=== PATIENT | female | born 1990 | race African-American/Black ===

== ENCOUNTER 2017-03-09 21:14 | Emergency (ER) | payer MEDICAID ==
[2017-03-09 21:36] VITALS: BP 133/79
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
--- NOTE | 2017-03-10 10:24 | CR ---
Right forearm: Two views of the right forearm were obtained. Comparison: No previous study. Soft tissue swelling is noted. No fracture, dislocation or other bony abnormality is seen. Impression: 1. Soft tissue swelling. 2. No bony abnormality is identified on right forearm study. Diagnostic code #2
--- NOTE | 2017-03-10 10:24 | CR ---
Right wrist: Four views of the right wrist were obtained. Comparison: No previous study. Joint spaces are maintained. No fracture, dislocation or other bony abnormality is seen. Impression: 1. No abnormality is identified on right wrist exam. Diagnostic code #1
== END 2017-03-10 02:00 | disposition home or self-care (01) ==
LOC: JD.ED 21:14
DX: S50.11XA Contusion of right forearm, initial encounter (principal); S69.91XA Unspecified injury of right wrist, hand and finger(s), initial encounter; F17.210 Nicotine dependence, cigarettes, uncomplicated; Y04.0XXA Assault by unarmed brawl or fight, initial encounter; M25.531 Pain in right wrist; M79.631 Pain in right forearm
CPT/HCPCS: 29125; 73090-26-RT; 73090-RT; 73110-26-RT; 73110-RT; 99282; 99284-25

== ENCOUNTER 2017-06-20 11:06 | Emergency (ER) | payer MEDICAID ==
[2017-06-20 11:17] VITALS: BP 116/71
--- NOTE | 2017-06-20 11:59 | EDM.PDOC ---
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 Symptom started about 1 week ago and have progressively gotten worse. She says it feels like a yeast infection but would like to be checked for STIs. She has been with the same partner for 1.5 years. She says her partner is also experiencing symptoms. No fever or chills. She is not on any forms of control and is a possibility. She denies burning or pain with urination. No flank pain. She is due to start her period next week. 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 Denies: Fever, Chills Respiratory: Reports: No Symptoms Cardiovascular: Reports: No Symptoms GI/Abdominal: Denies: Abdominal Pain, Nausea, Vomiting : Reports: Discharge, Frequency. Denies: Dysuria, Flank Pain, Hematuria, Urgency ED EXAM, RENAL/ - Physical Exam Exam: See Below Exam Limited By: No Limitations General Appearance: Alert, WD/WN, No Apparent Distress Respiratory/Chest: No Respiratory Distress, Lungs Clear, Normal Breath Sounds Cardiovascular: Regular Rate, Rhythm GI/Abdominal: Normal Bowel Sounds, Soft, Non-Tender (Female) Exam: Normal External Exam, Normal Bimanual Exam, Vaginal Discharge (white, thin dischage ). No: Cervical Dilatation, Cervical Lesions, Cervix Motion Tenderness, Vaginal Bleeding, Vaginal Lesions, Vaginal Tears Back Exam: Normal Inspection, Full Range of Motion. No: CVA Tenderness (L), CVA Tenderness (R) Neurological: Alert, Oriented, Normal Cognition Course - Vital Signs Last Recorded V/S: Last Vital Signs Temp 97.6 F 06/20/17 11:14 Pulse 93 06/20/17 11:14 Resp 18 06/20/17 11:14 BP 116/71 06/20/17 11:14 Pulse Ox 97 06/20/17 11:14 - Orders/Labs/Meds Orders: Active Orders 24 hr Category Date Time Status Pelvic Exam, Set Up [RC] ASDIRECTED Care 06/20/17 11:45 Active Labs: Laboratory Tests 06/20/17 06/20/17 06/20/17 Range/Units 11:35 11:35 11:40 Urine Color Yellow (Yellow) Urine Appearance Clear (Clear) Urine pH 6.0 (5.0-8.0) Ur Specific [place] > or = 1.030 (1.005-1.030) Urine Protein Negative (Negative) Urine Glucose (UA) Negative (Negative) Urine Ketones Negative (Negative) Urine Occult Blood Negative (Negative) Urine Nitrite Negative (Negative) Urine Bilirubin Negative (Negative) Urine Urobilinogen 0.2 (0.2-1.0) Ur Leukocyte Esterase Trace H (Negative) Urine RBC 0-5 (0-5) /hpf Urine WBC 5-10 H (0-5) /hpf Ur Epithelial Cells 0-5 (0-5) /hpf Urine Bacteria Few (FEW) /hpf Urine Mucus Few (FEW) /hpf Urine HCG, Qual Negative (NEGATIVE) C trachomatis DNA (PCR) Detected H N gonorrhoeae DNA (PCR) Not detected - Re-Assessments/Exams Free Text/Narrative Re-Assessment/Exam: 06/20/17 13:16 Hcg is negative. Wet mount is positive for trichomoniasis. UA reveals 5-10 WBCs and positive leukocytes. Discussed with Dr Peterson. Will treat with Cipro 500mg BID x5 days and Flagyl 500mg BID x3 days. Will call patient if her GC/cylamydia testing comes back positive. 06/20/17 15:21 Chlamydia came back positive. Patient was notified of results. Rx for Azithromycin 1 gram PO x1 [facility] [address]. Departure - Departure Time of Disposition: 13:13 Disposition: Home, Self-Care 01 Condition: Good Clinical Impression: Vaginitis due to Trichomonas - Discharge Information Prescriptions: Ciprofloxacin [IJD: Ciprofloxacin HCl] 500 mg PO BID #10 tab metroNIDAZOLE [Flagyl] 500 mg PO BID #6 tablet Instructions: Vaginitis, [id number]-Cced Referrals: Lawanda Beth, MANAGER WINTER [Nurse Practitioner] - Forms: ED Department Discharge Additional Instructions: Your test was negative today. Your tests back with an infection called trichomoniasis. Treatment includes Flagyl 500mg twice a day for 5 days Your urine sample also showed a mild infection. This will be treated with Ciprofloxacin 500mg twice a day for 5 days. Follow-up in the clinic with Lawanda BURNHAM if your symptoms do not improve in 3-4 days. We will call you if your additional testing comes back positive. - My Orders Last 24 Hours: My Active Orders 06/20/17 11:45 Pelvic Exam, Set Up [RC] ASDIRECTED - Assessment/Plan Last 24 Hours: My Active Orders 06/20/17 11:45 Pelvic Exam, Set Up [RC] ASDIRECTED
[2017-06-20 13:54] LABS: C. TRACHOMATIS BY PCR DETECTED; N. GONORRHOEAE BY PCR NOT DETECTED
== END 2017-06-20 13:25 | disposition home or self-care (01) ==
LOC: JD.ED 11:06
DX: A59.01 Trichomonal vulvovaginitis (principal)
CPT/HCPCS: 81001; 81025; 87210; 87491; 87591; 87808; 99283

== ENCOUNTER 2017-08-10 09:50 | Emergency (ER) | payer MEDICAID ==
[2017-08-10 10:05] VITALS: BP 156/110
[2017-08-10] MEDS ORDERED: Lidocaine 1% 50 ML MDV INJECT ONE (10:58)
[2017-08-10] MEDS ORDERED: Acetaminophen Soln 650 MG/20.3 ML UD Cup PO ONE (10:58)
[2017-08-10] MEDS ORDERED: Ondansetron 4 MG Tab.DIS PO ONE (11:04)
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
[2017-08-10] MEDS ORDERED: Ondansetron 4 MG Tab.DIS ONE (11:07)
--- NOTE | 2017-08-10 15:44 | CR ---
Left fingers: Three radiographs of the left second through fourth digits were obtained. Soft tissue injury is seen within the second through fourth digits. No fracture or other bony abnormality is seen. Impression: 1. Soft tissue injury. No acute bony abnormality is identified. Diagnostic code #2
== END 2017-08-10 13:59 | disposition home or self-care (01) ==
LOC: SUPCPDRO 09:50 → JD.ED 09:50
DX: S61.211A Laceration without foreign body of left index finger without damage to nail, initial encounter (principal); S61.213A Laceration without foreign body of left middle finger without damage to nail, initial encounter; S61.215A Laceration without foreign body of left ring finger without damage to nail, initial encounter; Y04.8XXA Assault by other bodily force, initial encounter
CPT/HCPCS: 12004; 73140; 99284; A9270

== ENCOUNTER 2017-08-23 16:53 | Emergency (ER) | payer MEDICAID | END 2017-08-23 17:08 | LOC: JD.ED 16:53 | DX: O9A.211 Injury, poisoning and certain other consequences of external causes complicating pregnancy, first trimester (principal); S61.213D Laceration without foreign body of left middle finger without damage to nail, subsequent encounter; S61.211D Laceration without foreign body of left index finger without damage to nail, subsequent encounter; S61.215D Laceration without foreign body of left ring finger without damage to nail, subsequent encounter; X78.1XXA Intentional self-harm by knife, initial encounter ==

== ENCOUNTER 2017-09-16 11:48 | Emergency (ER) | payer MEDICAID ==
[2017-09-16 11:59] VITALS: BP 126/86
[2017-09-16] MEDS ORDERED: Ranitidine 15 MG/ML Syrup 10 ML UD Cup PO ONE (12:23)
--- NOTE | 2017-09-16 12:32 | EDM.PDOC ---
ED HPI GENERAL MEDICAL PROBLEM - General Chief Complaint: Abdominal Pain Stated Complaint: Abdominal pain Time Seen by Provider: 09/16/17 12:10 Source of Information: Reports: Patient, RN Notes Reviewed History Limitations: Reports: No Limitations - History of Present Illness INITIAL COMMENTS - FREE TEXT/NARRATIVE: 27 year old female presents to the ED with complaints of 1 hour history of epigastric pain. The pain is described as intermittent. The pain does not radiate. The pain improves with palpation. Prior to onset of symptoms, she ate some ground turkey and rice. She did vomit once after onset of pain. She also had a large, soft bowel movement after onset of symptoms. She's had no diarrhea, fever or chills. No history of abdominal pain with certain foods. She has been eating a lot of spicy food lately. She is approximately 12 weeks and has been experiencing morning sickness, nausea and vomiting throughout her first trimester. She has not taken any medications prior to arrival. She denies urinary tract symtoms. She denies vaginal bleeding or discharge. OBGYN history: 5, para 2, history of 2 abortions. Her OBGYN is Dr. Engle. Upper Abdominal Pain Score (Numeric/FACES): 8 - Related Data Allergies Allergy/AdvReac Type Severity Reaction Status Date / Time No Known Allergies Allergy Verified 09/16/17 11:56 Home Meds: Home Meds Vitamin. 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 Social & Family History - Family History Family Medical History: Noncontributory - Tobacco Use Smoking Status *Q: Unknown Ever Smoked Years of Tobacco use: 3 Packs/Tins Daily: 0.1 Second Hand Smoke Exposure: No - Caffeine Use Caffeine Use: Reports: Soda - Alcohol Use Days Per Week of Alcohol Use: 3 Number of Drinks Per Day: 2 Total Drinks Per Week: 6 - Recreational Drug Use Recreational Drug Use: Yes Recreational Drug Type: Reports: Cocaine Recreational Drug Use Frequency: Not Used In Over 6 Months ED ROS GENERAL - Review of Systems Review Of Systems: See Below Constitutional: Reports: No Symptoms. Denies: Fever, Chills, Night Sweats Respiratory: Reports: No Symptoms. Denies: Shortness of Breath Cardiovascular: Reports: No Symptoms. Denies: Chest Pain GI/Abdominal: Reports: Abdominal Pain, Nausea, Vomiting. Denies: Constipation, Diarrhea, Hematemesis : Reports: No Symptoms. Denies: Dysuria, Flank Pain ED EXAM, GI/ABD - Physical Exam Exam: See Below Exam Limited By: No Limitations General Appearance: Alert, WD/WN, No Apparent Distress Respiratory/Chest: No Respiratory Distress, Lungs Clear, Normal Breath Sounds Cardiovascular: Regular Rate, Rhythm GI/Abdominal Exam: Normal Bowel Sounds, Soft, Non-Tender, No Organomegaly, No Distention, Other (Negative ignacio's sign. No pain with palpation to the abdomen. According to patient, the pain is isolated to the epigastric region. ) . No: Guarding, Rigid, Rebound, Tender Course - Vital Signs Last Recorded V/S: Last Vital Signs Temp 97.2 F 09/16/17 11:56 Pulse 98 09/16/17 11:56 Resp BP 126/86 09/16/17 11:56 Pulse Ox 99 09/16/17 11:56 - Orders/Labs/Meds Meds: Medications Discontinued Medications Generic Name Dose Route Start Last Admin Trade Name Freq PRN Reason Stop Dose Admin Ranitidine HCl 150 mg 09/16/17 12:23 Zantac PO 09/16/17 12:24 ONETIME ONE - Re-Assessments/Exams Free Text/Narrative Re-Assessment/Exam: Abdominal exam is benign. It's likely the patient has gastritis related to morning sickness, nausea and vomiting in early . She was instructed to take zantac and tums PRN. Educated on dietary modifications. She is to f/u with her OBGYN as scheduled, sooner if needed. Departure - Departure Time of Disposition: 12:30 Disposition: Home, Self-Care 01 Condition: Good Clinical Impression: Gastroesophageal reflux in Gastritis Qualifiers: Gastritis type: unspecified gastritis Chronicity: acute Gastritis bleeding: without bleeding Qualified Code(s): K29.00 - Acute gastritis without bleeding - Discharge Information Referrals: Frederick Engle MD [Primary Care Provider] - Forms: ED Department Discharge Additional Instructions: Zantac 150mg tablet twice a day as needed for pain You can also take 1-2 Tums every 4-6 hours as needed [place] diet: avoid spicy foods, tomato based foods, caffeine, acidic fruits Stay well hydrated, at least 80 oz of water per day. Follow-up with your OBGYN as scheduled Return to ER or clinic if symptoms worsen or do not improve with above treatment.
== END 2017-09-16 12:55 | disposition home or self-care (01) ==
LOC: JD.ED 11:48
DX: O99.611 Diseases of the digestive system complicating pregnancy, first trimester (principal); K29.00 Acute gastritis without bleeding; Z3A.12 12 weeks gestation of pregnancy
CPT/HCPCS: 99284; A9270; 99283

== ENCOUNTER 2017-11-09 19:04 | Emergency (ER) | payer MEDICAID ==
[2017-11-09 19:16] VITALS: BP 113/74
--- NOTE | 2017-11-09 20:22 | EDM.PDOC ---
ED HPI GENERAL MEDICAL PROBLEM - General Chief Complaint: HAIR COLORIST Problem Stated Complaint: spotting Time Seen by Provider: 11/09/17 19:09 Source of Information: Reports: Patient History Limitations: Reports: No Limitations - History of Present Illness INITIAL COMMENTS - FREE TEXT/NARRATIVE: The patient states that she had some painless vaginal spotting around 19:00 this evening. She reports that she has had lower abdominal and lower back pain since yesterday, 11/08/2017. No vaginal discharge, itching, or discomfort. The patient is G5 L2 AB2. Her LMP was 06/25/2017, with LEE 06/02/2018 by dates as well as by U/S - she has had 2 with this - her last was around 2 months ago, demonstrating a SLIUP. She is 19W 4D today. The patient states that her blood type is O-Neg. She states that she received RhoGAM during 2 previous pregnancies. Her Production Planning Manager is Dr. Frederick Engle. The patient does not have a PCP. - Related Data Allergies Allergy/AdvReac Type Severity Reaction Status Date / Time No Known Allergies Allergy Verified 11/09/17 19:17 Home Meds: Home Meds Vitamin. 1 tab PO DAILY 09/16/17 [History] Past Medical History HAIR COLORIST History: Reports: , Therapeutic (x 2) Endocrine/Metabolic History: Reports: Obesity/BMI 30+ - Past Surgical History HEENT Surgical History: Reports: Oral Surgery ([place] teeth extraction) Social & Family History - Family History Family Medical History: Noncontributory - Tobacco Use Smoking Status *Q: Former Smoker Years of Tobacco use: 3 Packs/Tins Daily: 0.1 Second Hand Smoke Exposure: Yes - Caffeine Use Caffeine Use: Reports: None - Alcohol Use Alcohol Use History: Yes Days Per Week of Alcohol Use: 3 Number of Drinks Per Day: 2 Total Drinks Per Week: 6 Alcohol Use Frequency: Socially - Recreational Drug Use Recreational Drug Use: No Recreational Drug Type: Reports: Cocaine Recreational Drug Use Frequency: Not Used In Over 6 Months - Living Situation & Occupation Living situation: Reports: Single, with Significant Other (Boyfriend), with Family (2 kids) 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) ED ROS GENERAL - Review of Systems Review Of Systems: See Below Constitutional: Reports: No Symptoms HEENT: Reports: No Symptoms Respiratory: Reports: Cough (last week) Cardiovascular: Reports: No Symptoms Endocrine: Reports: No Symptoms GI/Abdominal: Reports: No Symptoms : Reports: No Symptoms Musculoskeletal: Reports: No Symptoms Skin: Reports: No Symptoms Neurological: Reports: No Symptoms Psychiatric: Reports: No Symptoms Hematologic/Lymphatic: Reports: No Symptoms Immunologic: Reports: No Symptoms ED EXAM - Physical Exam Exam: See Below Exam Limited By: No Limitations General Appearance: Alert, WD/WN, No Apparent Distress Eye Exam: Bilateral Eye: Normal Inspection Ears: Normal External Exam, Hearing Grossly Normal Nose: Normal Inspection, No Blood Throat/Mouth: Normal Inspection, Normal Lips, Normal Voice, No Airway Compromise Head: Atraumatic, Normocephalic Neck: Normal Inspection, Full Range of Motion Respiratory/Chest: No Respiratory Distress, Lungs Clear, Normal Breath Sounds, No Accessory Muscle Use Cardiovascular: Normal Peripheral Pulses, Regular Rate, Rhythm, No Gallop, No JVD, No Murmur, No Rub GI/Abdominal Exam: Normal Bowel Sounds, Soft, Non-Tender (even to lower abdomen) , No Organomegaly, No Distention, No Abnormal Bruit, Other (Gravid uterus consistent with dates) Rectal Exam: Deferred (Female) Exam: Normal Speculum Exam. No: Cervical Dilatation, Cervical Discharge, Cervical Fluid, Cervical Lesions, Vaginal Bleeding, Vaginal Discharge , Vaginal Lesions Back Exam: Normal Inspection, Full Range of Motion, NT Extremities: Normal Inspection, Normal Range of Motion, No Pedal Edema, Normal Capillary Refill Neurological: Alert, Oriented, Normal Cognition, No Motor/Sensory Deficits Psychiatric: Normal Affect Skin Exam: Warm, Dry, Intact, Normal Color, No Rash Course - Vital Signs Last Recorded V/S: Last Vital Signs Temp 36.9 C 11/09/17 19:14 Pulse 89 11/09/17 19:14 Resp 18 11/09/17 19:14 BP 113/74 11/09/17 19:14 Pulse Ox 100 11/09/17 19:14 - Orders/Labs/Meds Orders: Active Orders 24 hr Category Date Time Status PATIENT RETYPE [BBK] Stat Lab 11/09/17 20:04 Results RH IMMUNE GLOBULIN [BBK] Routine Lab 11/09/17 21:02 Results RHOGAM, [RHIG WORKUP, ] [BBK] Stat Lab 11/09/17 20:04 Results Labs: Laboratory Tests 11/09/17 Range/Units 20:04 Blood Type O NEGATIVE Gel Antibody Screen Negative Rhogam Indicated Yes - Re-Assessments/Exams Free Text/Narrative Re-Assessment/Exam: 11/09/17 20:[address] Azevedo at 20:12. She recommends that we proceed with giving the patient Rhogam, then have the patient follow-up with Dr. Engle as an outpatient. 11/09/17 21:33 The patient's blood type has returned as O-Neg. She will receive 300 g RhoGAM before being discharged home. Departure - Departure Time of Disposition: 21:35 Disposition: Home, Self-Care 01 Condition: Good Clinical Impression: Spotting during - Discharge Information Referrals: Frederick Engle MD [Primary Care Provider] - Forms: ED Department Discharge Additional Instructions: You were seen in the emergency room for painless vaginal spotting during . On physical examination, no vaginal blood was found. Your case was discussed with the Production Planning Manager Dr. Azevedo, on-call for Dr. Engle. She recommended that you receive a RhoGAM shot tonight. Follow-up with Dr. Engle at the next available appointment. If any other problems, please do not hesitate to return to the ER. - My Orders Last 24 Hours: My Active Orders 11/09/17 20:04 PATIENT RETYPE [BBK] Stat RHOGAM, [RHIG WORKUP, ] [BBK] Stat 11/09/17 21:02 RH IMMUNE GLOBULIN [BBK] Routine - Assessment/Plan Last 24 Hours: My Active Orders 11/09/17 20:04 PATIENT RETYPE [BBK] Stat RHOGAM, [RHIG WORKUP, ] [BBK] Stat 11/09/17 21:02 RH IMMUNE GLOBULIN [BBK] Routine
== END 2017-11-09 21:55 | disposition home or self-care (01) ==
LOC: JD.ED 19:04
DX: O26.852 Spotting complicating pregnancy, second trimester (principal); Z87.891 Personal history of nicotine dependence; Z3A.14 14 weeks gestation of pregnancy
CPT/HCPCS: 36415; 86850; 86900; 86901; 99284; J2790; 99283

== ENCOUNTER 2017-12-07 11:49 | Emergency (ER) | payer MEDICAID ==
[2017-12-07 12:13] VITALS: BP 119/91
--- NOTE | 2017-12-07 12:18 | EDM.PDOC ---
ED HPI GENERAL MEDICAL PROBLEM - General Chief Complaint: Respiratory Problem Stated Complaint: FEVER/SORE THROAT- 6 MO PREG Time Seen by Provider: 12/07/17 12:18 Source of Information: Reports: Patient - History of Present Illness INITIAL COMMENTS - FREE TEXT/NARRATIVE: Patient is here today for evaluation of cough and sore throat. She states that symptoms started 2 days ago. She did not receive the influenza vaccine. Patient has had fever, states she is feeling slightly better today. Patient states she has decreased appetite but is tolerating oral fluids. She did a [employer] just prior to arrival in the emergency department. Patient is 6 months , her OB is Dr. Engle at [facility]. 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 Endocrine/Metabolic History: Reports: Obesity/BMI 30+ - Past Surgical History HEENT Surgical History: Reports: Oral Surgery Social & Family History - Family History Family Medical History: Noncontributory - Tobacco Use Smoking Status *Q: Former Smoker Years of Tobacco use: 3 Packs/Tins Daily: 0.1 Second Hand Smoke Exposure: Yes - Caffeine Use Caffeine Use: Reports: None - Alcohol Use Days Per Week of Alcohol Use: 3 Number of Drinks Per Day: 2 Total Drinks Per Week: 6 - Recreational Drug Use Recreational Drug Use: No Recreational Drug Type: Reports: Cocaine Recreational Drug Use Frequency: Not Used In Over 6 Months - Living Situation & Occupation Living situation: Reports: Single, with Significant Other (Boyfriend), with Family (2 kids) 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 Denies: Shortness of Breath, Wheezing Cardiovascular: Reports: No Symptoms Endocrine: Reports: No Symptoms GI/Abdominal: Reports: No Symptoms Musculoskeletal: Reports: No Symptoms Skin: Reports: No Symptoms ED EXAM, GENERAL - Physical Exam Exam: See Below Exam Limited By: No Limitations General Appearance: Alert, WD/WN, No Apparent Distress, Other (Patient is not ill in appearance.) Ears: Normal External Exam, Normal Canal, Normal TMs Nose: Normal Inspection, Normal Mucosa Throat/Mouth: Normal Inspection, Normal Oropharynx, Normal Voice Neck: Normal Inspection, Supple, Non-Tender Respiratory/Chest: No Respiratory Distress, Lungs Clear, Normal Breath Sounds, Chest Non-Tender Cardiovascular: Normal Peripheral Pulses, Regular Rate, Rhythm, No Murmur GI/Abdominal: Normal Bowel Sounds, Non-Tender, Other (Gravid) Neurological: Alert, Oriented Psychiatric: Normal Affect, Normal Mood Skin Exam: Warm, Dry, Intact Course - Vital Signs Last Recorded V/S: Last Vital Signs Temp 98.2 F 12/07/17 12:11 Pulse 97 12/07/17 12:11 Resp 20 12/07/17 12:11 BP 119/91 H 12/07/17 12:11 Pulse Ox 99 12/07/17 12:11 - Orders/Labs/Meds Orders: Active Orders 24 hr Category Date Time Status CULTURE STREP A CONFIRMATION [RM] Stat Lab 12/07/17 12:49 Results Rapid Strep w/culture conf [STREP SCRN A RAPID W CULT Lab 12/07/17 12:49 Results CONF] [RM] Stat - Re-Assessments/Exams Free Text/Narrative Re-Assessment/Exam: Influenza A positive, patient is out of the treatment window for Tamiflu and her symptoms are already improving. She did not receive her flu vaccine this year. Patient has decreased appetite but drinking plenty of fluids well, she is drinking water here in the clinic without difficulty. Lungs CTA bilaterally and oxygen 99% on room air. Will discharge home, recommend rest/fluids/Tylenol as needed. Patient does have a follow-up with her OB tomorrow. I recommend she keep this wear mask when she comes into the clinic. 12/07/17 17:14 Departure - Departure Time of Disposition: 13:47 Disposition: Home, Self-Care 01 Condition: Good Clinical Impression: Influenza A - Discharge Information Instructions: Influenza, Adult, [id number] Referrals: Frederick Engle MD [Primary Care Provider] - Forms: ED Department Discharge Additional Instructions: You have been diagnosed with influenza A. It is past the time window to use antiviral medications for this. I recommend that you rest, maximize oral fluid intake. Tylenol as needed. Follow-up with your OB tomorrow as scheduled. You will need to wear a mask when you come into the building. - My Orders Last 24 Hours: My Active Orders 12/07/17 12:49 CULTURE STREP A CONFIRMATION [RM] Stat Rapid Strep w/culture conf [STREP SCRN A RAPID W CULT CONF] [RM] Stat - Assessment/Plan Last 24 Hours: My Active Orders 12/07/17 12:49 CULTURE STREP A CONFIRMATION [RM] Stat Rapid Strep w/culture conf [STREP SCRN A RAPID W CULT CONF] [RM] Stat
== END 2017-12-07 14:06 | disposition home or self-care (01) ==
LOC: JD.ED 11:49
DX: O99.511 Diseases of the respiratory system complicating pregnancy, first trimester (principal); J10.1 Influenza due to other identified influenza virus with other respiratory manifestations; Z87.891 Personal history of nicotine dependence; Z3A.01 Less than 8 weeks gestation of pregnancy
CPT/HCPCS: 87081; 87430; 87804; 99282; 99283

== ENCOUNTER 2018-03-11 11:24 | Inpatient (IN) | payer MEDICAID ==
--- NOTE | 2018-03-11 13:37 | PCM.LDHP ---
L&D History of Present Illness - General Date of Service: 03/11/18 Admit Problem/Dx: Patient Status Order with Admit Dx/Problem 03/11/18 11:55 Patient Status [ADT] Routine Admission Diagnosis/Problem Admission Diagnosis/Problem Source of Information: Patient History Limitations: Reports: No Limitations - History of Present Illness Introduction:: 27 year old female who presents "not feeling well". She is having back pain, irregular contractions, headache and nausea. Has some mild upper respiratory symptoms as well. She has had care with Dr. 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: , 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 Endocrine/Metabolic History: Reports: Obesity/BMI 30+ - Past Surgical History HEENT Surgical History: Reports: Oral Surgery Social & Family History - Family History Family Medical History: Noncontributory - Caffeine Use Caffeine Use: Reports: None - Living Situation & Occupation Living situation: Reports: Single, with Significant Other (Boyfriend), with Family (2 kids) 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) H&P Review of Systems - Review of Systems: Review Of Systems: See Below General: Reports: Fatigue HEENT: Reports: Headaches Pulmonary: Reports: Cough Cardiovascular: Reports: No Symptoms Gastrointestinal: Reports: Nausea, Vomiting Genitourinary: Reports: No Symptoms Musculoskeletal: Reports: No Symptoms Skin: Reports: No Symptoms Psychiatric: Reports: No Symptoms Neurological: Reports: No Symptoms Hematologic/Lymphatic: Reports: No Symptoms Immunologic: Reports: No Symptoms L&D Exam - Exam Exam: See Below - Vital Signs Weight: 124.375 kg - OB Specific Contraction Intensity: Irritability Movement: Active Heart Tones: Present Heart Tones per Min: 145 Heart Rate (FHR) Variability: Moderate (6-25 bmp) Presentation: Vertex - Juarez Score Juarez Score Cervix Position: Midposition Juarez Score Consistency: Medium Juarez Score Effacement: 51-70% Juarez Score Dilation: 1-2 cm Juarez Score 's Station: -3 Juarez Score Total: 5 - Exam General: Alert, Oriented HEENT: PERRLA, Conjunctiva Clear, EACs Clear, EOMI, Hearing Intact, Mucosa Moist & [place], Nares Patent, Normal Nasal Septum, Posterior Pharynx Clear, TMs Clear Neck: Supple, Trachea Midline Lungs: Clear to Auscultation, Normal Respiratory Effort Cardiovascular: Regular Rate, Regular Rhythm GI/Abdominal Exam: Normal Bowel Sounds, Soft, Non-Tender, No Organomegaly, No Distention, No Abnormal Bruit, No Mass, Pelvis Stable Back Exam: Normal Inspection, Full Range of Motion Extremities: Normal Inspection, Normal Range of Motion, Non-Tender, No Pedal Edema, Normal Capillary Refill Skin: Warm, Dry, Intact Neurological: Cranial Nerves Intact, Reflexes Equal Bilateral Psychiatric: Alert, Normal Affect, Normal Mood - Patient Data Lab Results Last 24 hrs: Laboratory Results - last 24 hr 03/11/18 03/11/18 Range/Units 12:06 12:06 WBC 6.60 (3.98-10.04) K/mm3 RBC 4.29 (3.98-5.22) M/mm3 Hgb 10.9 L (11.2-15.7) gm/L Hct 34.4 (34.1-44.9) % MCV 80.2 (79.4-94.8) fl MCH 25.4 L (25.6-32.2) pg MCHC 31.7 L (32.2-35.5) g/dl RDW Std Deviation 43.7 (36.4-46.3) fL Plt Count 239 (182-369) K/mm3 MPV 11.0 (9.4-12.3) fl Neut % (Auto) 75.2 H (34.0-71.1) % Lymph % (Auto) 14.8 L (19.3-51.7) % [place] % (Auto) 8.5 (4.7-12.5) % Eos % (Auto) 0.8 (0.7-5.8) Baso % (Auto) 0.2 (0.1-1.2) % Neut # (Auto) 4.97 (1.56-6.13) K/mm3 Lymph # (Auto) 0.98 L (1.18-3.74) K/mm3 [place] # (Auto) 0.56 H (0.24-0.36) K/mm3 Eos # (Auto) 0.05 (0.04-0.36) K/mm3 Baso # (Auto) 0.01 (0.01-0.08) K/mm3 BUN 4 L (7-18) mg/dL Creatinine 0.5 L (0.55-1.02) mg/dL Est Cr Clr Drug Dosing 168.98 mL/min Estimated GFR (MDRD) > 60 (>60) mL/min Uric Acid 3.6 (2.6-6.0) mg/dL AST 16 (15-37) U/L ALT 19 (14-59) U/L Lactate Dehydrogenase 164 (81-234) U/L Result Diagrams: 03/11/18 12:06 03/11/18 12:06 - Problem List (1) Gestational HTN SNOMED Code(s): 05519726 ICD Code: O13.9 - GESTATIONAL HTN W/O SIGNIFICANT PROTEINURIA, UNSP TRIMESTER Status: Acute Current Visit: Yes Problem List Initiated/Reviewed/Updated: Yes Orders Last 24hrs: Active Orders 24 hr Category Date Time Status Patient Status [ADT] Routine ADT 03/11/18 11:55 Active Non Stress Test [RC] PER UNIT ROUTINE Care 03/11/18 11:55 Active Vaginal Exam [RC] PRN Care 03/11/18 11:56 Active Vital Signs [RC] PER UNIT ROUTINE Care 03/11/18 11:55 Active Regular Diet [DIET] Diet 03/11/18 Lunch Active PIH Panel [OM.PC] Stat Oth 03/11/18 11:55 Ordered Resuscitation Status Routine Resus Stat 03/11/18 11:55 Ordered Assessment/Plan Comment:: IUP at 37 weeks with new onset gestational hypertension. Given she is 37 weeks and her blood pressures throughout have been normal would proceed toward delivery. 1) Labs normal 2) Monitor blood pressures - nothing in range that needs treatment beyond delivery now 3) Proceed with induction. 4) Reassuring status
[2018-03-11] MEDS ORDERED: Sodium Chloride 0.9% 10 ML Syringe FLUSH PRN (13:45)
[2018-03-11] MEDS: Lactated Ringers 1,000 ML IV SCH (16:00)
[2018-03-11 16:36] LABS: C. TRACHOMATIS BY PCR NOT DETECTED; N. GONORRHOEAE BY PCR NOT DETECTED
[2018-03-11] MEDS ORDERED: Misoprostol 25 MCG (1/4 of 100 MCG) Tab VAG SCH (17:00)
[2018-03-11] MEDS: Misoprostol 25 MCG (1/4 of 100 MCG) Tab VAG SCH (18:10)
[2018-03-11] MEDS ORDERED: diphenhydrAMINE 50 MG/ML SDV IVPUSH PRN (21:30)
[2018-03-11] MEDS ORDERED: Ondansetron 4 MG/2 ML SDV IVPUSH PRN (21:30)
[2018-03-11] MEDS ORDERED: ePHEDrine 50 MG/ML SDV IVPUSH PRN (21:30)
[2018-03-11] MEDS ORDERED: Bupivacaine/fentaNYL/NS 100 ML Bag EPIDUR SCH (21:30)
[2018-03-11] MEDS ORDERED: fentaNYL 100 MCG/2 ML SDV EPIDUR PRN (21:30)
--- NOTE | 2018-03-11 21:30 | PCM.PREANE ---
Preanesthetic Assessment - Procedure Proposed Procedure: LEO - Anesthesia/Transfusion/Family Hx Anesthesia History: Prior Anesthesia Without Reaction Family History of Anesthesia Reaction: No Transfusion History: No Prior Transfusion(s) Intubation History: Unknown - Review of Systems General: No Symptoms Pulmonary: No Symptoms Cardiovascular: No Symptoms Gastrointestinal: No Symptoms Neurological: No Symptoms Other: Reports: None - Physical Assessment NPO Status Date: 03/11/18 NPO Status Time: 18:00 Pulse: 92 Respiratory Rate: 16 Blood Pressure: 146/87 Vital Signs: Last Vital Signs Temp 36.7 C 03/11/18 13:00 Pulse 92 03/11/18 15:30 Resp 16 03/11/18 13:00 BP 146/87 H 03/11/18 15:30 Pulse Ox Height: 1.73 m Weight: 124.284 kg ASA Class: 2 Mental Status: Alert & Oriented x3 Airway Class: Mallampati = 2 Dentition: Reports: Normal Dentition Thyro-Mental Finger Breadths: 3 Mouth Opening Finger Breadths: 3 ROM/Head Extension: Full Lungs: Clear to Auscultation, Normal Respiratory Effort Cardiovascular: Regular Rate, Regular Rhythm - Lab Values: Laboratory Last Values WBC 6.60 K/mm3 (3.98-10.04) 03/11/18 12:06 RBC 4.29 M/mm3 (3.98-5.22) 03/11/18 12:06 Hgb 10.9 gm/L (11.2-15.7) L 03/11/18 12:06 Hct 34.4 % (34.1-44.9) 03/11/18 12:06 MCV 80.2 fl (79.4-94.8) 03/11/18 12:06 MCH 25.4 pg (25.6-32.2) L 03/11/18 12:06 MCHC 31.7 g/dl (32.2-35.5) L 03/11/18 12:06 RDW Std Deviation 43.7 fL (36.4-46.3) 03/11/18 12:06 Plt Count 239 K/mm3 (182-369) 03/11/18 12:06 MPV 11.0 fl (9.4-12.3) 03/11/18 12:06 Neut % (Auto) 75.2 % (34.0-71.1) H 03/11/18 12:06 Lymph % (Auto) 14.8 % (19.3-51.7) L 03/11/18 12:06 [place] % (Auto) 8.5 % (4.7-12.5) 03/11/18 12:06 Eos % (Auto) 0.8 (0.7-5.8) 03/11/18 12:06 Baso % (Auto) 0.2 % (0.1-1.2) 03/11/18 12:06 Neut # (Auto) 4.97 K/mm3 (1.56-6.13) 03/11/18 12:06 Lymph # (Auto) 0.98 K/mm3 (1.18-3.74) L 03/11/18 12:06 [place] # (Auto) 0.56 K/mm3 (0.24-0.36) H 03/11/18 12:06 Eos # (Auto) 0.05 K/mm3 (0.04-0.36) 03/11/18 12:06 Baso # (Auto) 0.01 K/mm3 (0.01-0.08) 03/11/18 12:06 BUN 4 mg/dL (7-18) L 03/11/18 12:06 Creatinine 0.5 mg/dL (0.55-1.02) L 03/11/18 12:06 Est Cr Clr Drug Dosing 168.98 mL/min 03/11/18 12:06 Estimated GFR (MDRD) > 60 mL/min (>60) 03/11/18 12:06 Uric Acid 3.6 mg/dL (2.6-6.0) 03/11/18 12:06 AST 16 U/L (15-37) 03/11/18 12:06 ALT 19 U/L (14-59) 03/11/18 12:06 Lactate Dehydrogenase 164 U/L (81-234) 03/11/18 12:06 Urine Opiates Screen Negative (NEGATIVE) 03/11/18 14:45 Ur Buprenorphine Scrn Negative (NEGATIVE) 03/11/18 14:45 Ur Oxycodone Screen Negative (NEGATIVE) 03/11/18 14:45 Urine Methadone Screen Negative (NEGATIVE) 03/11/18 14:45 Ur Propoxyphene Screen Negative (NEGATIVE) 03/11/18 14:45 Ur Barbiturates Screen Negative (NEGATIVE) 03/11/18 14:45 Ur Tricyclics Screen Negative (NEGATIVE) 03/11/18 14:45 Ur Phencyclidine Scrn Negative (NEGATIVE) 03/11/18 14:45 Ur Amphetamine Screen Negative (NEGATIVE) 03/11/18 14:45 U Methamphetamines Scrn Negative (NEGATIVE) 03/11/18 14:45 U Benzodiazepines Scrn Negative (NEGATIVE) 03/11/18 14:45 U Cocaine Metab Screen Negative (NEGATIVE) 03/11/18 14:45 U Marijuana (THC) Screen Presumptive positive (NEGATIVE) H 03/11/18 14:45 C trachomatis DNA (PCR) Not detected 03/11/18 14:45 N gonorrhoeae DNA (PCR) Not detected 03/11/18 14:45 Blood Type O NEGATIVE 03/11/18 12:06 Gel Antibody Screen Negative 03/11/18 12:06 - Allergies Allergies/Adverse Reactions: Allergies Allergy/AdvReac Type Severity Reaction Status Date / Time No Known Allergies Allergy Verified 03/11/18 14:00 - Blood Blood Available: No Product(s) Available: None - Anesthesia Plan Pre-Op Medication Ordered: None - Acknowledgements Anesthesia Type Planned: Epidural Pt an Appropriate Candidate for the Planned Anesthesia: Yes Alternatives and Risks of Anesthesia Discussed w Pt/Guardian: Yes Pt/Guardian Understands and Agrees with Anesthesia Plan: Yes PreAnesthesia Questionnaire - Past Health History Medical/Surgical History: Denies Medical/Surgical History 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: , 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 Endocrine/Metabolic History: Reports: Obesity/BMI 30+ - Past Surgical History HEENT Surgical History: Reports: Oral Surgery - SUBSTANCE USE Smoking Status *Q: Former Smoker Tobacco Use Within Last Twelve Months: No Second Hand Smoke Exposure: No Recreational Drug Use History: No Recreational Drug Type: Reports: Marijuana/Hashish - HOME MEDS Home Medications: Home Meds PNV95/Ferrous Fumarate/FA [ Tablet] 1 tab PO DAILY 12/07/17 [History] - CURRENT (IN HOUSE) MEDS Current Meds: Current Medications Lactated Ringer's (Ringers, Lactated) 1,000 mls @ 100 mls/hr IV ASDIRECTED SHAUN Last Admin: 03/11/18 16:00 Dose: 50 mls/hr Misoprostol (Cytotec) 25 mcg VAG Q4H [facility] Last Admin: 03/11/18 18:10 Dose: 25 mcg Sodium Chloride (Saline Flush) 10 ml FLUSH ASDIRECTED PRN PRN Reason: Keep Vein Open Discontinued Medications Misoprostol (Cytotec) 25 mcg VAG Q4HR [facility] Last Admin: 03/11/18 13:45 Dose: 25 mcg
[2018-03-12] MEDS ORDERED: Nalbuphine 20 MG/1 ML Amp IVPUSH PRN (04:06)
[2018-03-12] MEDS: Misoprostol 25 MCG (1/4 of 100 MCG) Tab VAG SCH ×3 (04:06→16:10)
[2018-03-12] MEDS ORDERED: Oxytocin/Lactated Ringers 10 UNIT/1,000 ML BAG IV SCH (04:15)
[2018-03-12] MEDS: Lactated Ringers 1,000 ML IV SCH ×3 (04:40→06:40)
[2018-03-12] MEDS ORDERED: Bupivacaine 0.25% 10 ML SDV ONE (09:00)
[2018-03-12] MEDS ORDERED: Witch Hazel Medicated Pads 100/Jar TOP PRN (10:01)
[2018-03-12] MEDS ORDERED: Lanolin 100% Cream 7 GM Tube TOP PRN (10:01)
[2018-03-12] MEDS ORDERED: Benzocaine/Menthol 20%-0.5% Spray 56 GM Canister TOP PRN (10:01)
[2018-03-12] MEDS ORDERED: Docusate Sodium 100 MG Cap PO PRN (10:01)
[2018-03-12] MEDS: Ibuprofen 600 MG Tab PO PRN ×2 (13:50→19:17)
[2018-03-13] MEDS: Ibuprofen 600 MG Tab PO PRN ×2 (01:45→07:44)
--- NOTE | 2018-03-13 08:24 | PCM48HPAN ---
Post Anesthesia Note - EVALUATION WITHIN 48HRS OF ANESTHETIC Vital Signs in Normal Range: Yes Patient Participated in Evaluation: Yes Respiratory Function Stable: Yes Airway Patent: Yes Cardiovascular Function Stable: Yes Hydration Status Stable: Yes Pain Control Satisfactory: Yes Nausea and Vomiting Control Satisfactory: Yes Mental Status Recovered: Yes
--- NOTE | 2018-03-13 08:38 | PCM.PNPP ---
- General Info Date of Service: 03/13/18 Functional Status: Reports: Pain Controlled - Review of Systems General: Reports: No Symptoms HEENT: Reports: No Symptoms Pulmonary: Reports: No Symptoms Cardiovascular: Reports: No Symptoms Gastrointestinal: Reports: No Symptoms Genitourinary: Reports: No Symptoms Musculoskeletal: Reports: No Symptoms Skin: Reports: No Symptoms Neurological: Reports: No Symptoms Psychiatric: Reports: No Symptoms - General Info Date of Service: 03/13/18 - Patient Data Vital Signs - Most Recent: Last Vital Signs Temp 37.0 C 03/13/18 03:00 Pulse 82 03/13/18 03:00 Resp 14 03/13/18 03:00 BP 118/68 03/13/18 03:00 Pulse Ox 100 03/13/18 03:00 Weight - Most Recent: 124.284 kg I&O - Last 24 Hours: Intake & Output 03/12/18 03/13/18 03/13/18 22:59 06:59 14:59 Intake Total 482 Balance 482 Lab Results - Last 24 Hours: Laboratory Results - last 24 hr 03/11/18 03/12/18 03/13/18 Range/Units 14:00 11:15 05:40 WBC 7.38 (3.98-10.04) K/mm3 RBC 3.41 L (3.98-5.22) M/mm3 Hgb 8.7 L (11.2-15.7) gm/L Hct 28.1 L (34.1-44.9) % MCV 82.4 (79.4-94.8) fl MCH 25.5 L (25.6-32.2) pg MCHC 31.0 L (32.2-35.5) g/dl RDW Std Deviation 44.4 (36.4-46.3) fL Plt Count 220 (182-369) K/mm3 MPV 11.3 (9.4-12.3) fl Group B Strep (PCR) Negative (NEGATIVE) Blood Type Cancelled Gel Antibody Screen Cancelled Screen 0 ros/5 flds - neg RhIG Candidate? Yes Rhogam Indicated Cancelled Med Orders - Current: Current Medications Benzocaine/Menthol (Dermoplast Pain Relief [place]) 0 gm TOP ASDIRECTED PRN PRN Reason: Perineal Comfort Measure Docusate Sodium (Colace) 100 mg PO BID PRN PRN Reason: Constipation Emollient Ointment (Lansinoh Hpa) 0 gm TOP ASDIRECTED PRN PRN Reason: Sore Nipples Ibuprofen (Motrin) 600 mg PO Q6H PRN PRN Reason: Mild pain or fever Last Admin: 03/13/18 07:44 Dose: 600 mg Witch Mable (Tucks) 1 pad TOP ASDIRECTED PRN PRN Reason: Hemorrhoid pain Discontinued Medications Diphenhydramine HCl (Benadryl) 25 mg IVPUSH Q6H PRN PRN Reason: Pruritis Ephedrine Sulfate (Ephedrine Sulfate) 5 mg IVPUSH ASDIRECTED PRN PRN Reason: Hypotension Fentanyl (Sublimaze) 100 mcg EPIDUR Q3H PRN PRN Reason: Pain Last Admin: 03/12/18 05:25 Dose: 100 mcg Fentanyl/Bupivacaine HCl (Fentanyl/Bupivacaine/Ns 2 Mcg-0.125% 100 Ml) 100 ml EPIDUR ASDIRECTED [facility] Last Admin: 03/12/18 05:26 Dose: 100 ml Lactated Ringer's (Ringers, Lactated) 1,000 mls @ 100 mls/hr IV ASDIRECTED [facility] Last Admin: 03/12/18 06:40 Dose: 100 mls/hr Oxytocin/Lactated Ringer's (Pitocin In Lr 10 Units/1,000 Ml) 10 unit in 1,000 mls @ 12 mls/hr IV TITRATE [facility]; Protocol Last Titration: 03/12/18 06:43 Dose: 0 munits/min, 0 mls/hr Misoprostol (Cytotec) 25 mcg VAG Q4HR [facility] Last Admin: 03/11/18 13:45 Dose: 25 mcg Misoprostol (Cytotec) 25 mcg VAG Q4H [facility]UN Last Admin: 03/12/18 16:10 Dose: Not Given Nalbuphine HCl (Nubain) 10 mg IVPUSH Q3H PRN PRN Reason: Pain Ondansetron HCl (Zofran) 4 mg IVPUSH ONETIME PRN PRN Reason: Nausea/Vomiting Last Admin: 03/12/18 04:52 Dose: 4 mg Sodium Chloride (Saline Flush) 10 ml FLUSH ASDIRECTED PRN PRN Reason: Keep Vein Open - Infant Interaction Infant Disposition, : [place] in Room with Family Support Person: Significant Other - Recovery Exam Fundal Tone: Firm Fundal Level: 1 Fingerbreadths Below Umbilicus Fundal Placement: Midline Lochia Amount: Scant Lochia Color: Rubra/Red Perineum Description: Intact, Minimal Bruising/Swelling Episiotomy/Laceration: None Bladder Status: Voiding Urinary Elimination: Voided - Exam General: Alert, Oriented HEENT: Pupils Equal Neck: Supple Lungs: Clear to Auscultation, Normal Respiratory Effort Cardiovascular: Regular Rate, Regular Rhythm GI/Abdominal Exam: Normal Bowel Sounds, Soft, Non-Tender, No Organomegaly, No Distention, No Abnormal Bruit, No Mass, Pelvis Stable Extremities: Normal Inspection, Normal Range of Motion, Non-Tender, No Pedal Edema, Normal Capillary Refill Skin: Warm, Dry, Intact Wound/Incisions: Healing Well Neurological: No New Focal Deficit Psy/Mental Status: Alert, Normal Affect, Normal Mood - Problem List & Annotations (1) Gestational HTN SNOMED Code(s): 94058122 Code(s): O13.9 - GESTATIONAL HTN W/O SIGNIFICANT PROTEINURIA, UNSP TRIMESTER Status: Acute Current Visit: Yes - Problem List Review Problem List Initiated/Reviewed/Updated: Yes - My Orders Last 24 Hours: My Active Orders 03/12/18 10:01 Activity as Tolerated [RC] PER UNIT ROUTINE Vital Signs [RC] 09,15,21,03 Benzocaine/Menthol [Dermoplast Pain Relief Amma] See Dose Instructions TOP ASDIRECTED PRN Docusate Sodium [Colace] 100 mg PO BID PRN Ibuprofen [Motrin] 600 mg PO Q6H PRN Lanolin [Lansinoh HPA] See Dose Instructions TOP ASDIRECTED PRN Witch Mable [Tucks] 1 pad TOP ASDIRECTED PRN Assess Lochia [WOMSER] Per Unit Routine Assess Uterine Involution [WOMSER] Per Unit Routine Breast Pump [WOMSER] Per Unit Routine Heat Therapy [OM.PC] PRN Medication Administration Instruction [OM.PC] Routine Perineal Care [OM.PC] Per Unit Routine Sitz Bath [OM.PC] Per Unit Routine 03/12/18 18:50 Consult to Physician General Internal Medicine [CONS] Routine 03/13/18 10:01 Heat Therapy [OM.PC] PRN - Plan Plan:: day one. Doing well. Likely discharge tomorrow.
--- NOTE | 2018-03-13 09:03 | PCM.DCSUM1 ---
Discharge Summary - Discharge Data Discharge Date: 03/13/18 Discharge Disposition: Home, Self-Care 01 Condition: Good - Discharge Diagnosis/Problem(s) (1) Gestational HTN SNOMED Code(s): 96265538 ICD Code: O13.9 - GESTATIONAL HTN W/O SIGNIFICANT PROTEINURIA, UNSP TRIMESTER Status: Acute Current Visit: Yes - Patient Summary/Data Consults: Consultations 03/12/18 18:50 Consult to Finish Grinder [CONS] Routine - Patient Instructions Diet: Usual Diet as Tolerated Activity: No Strenuous Activities Driving: May Drive Today Showering/Bathing: May Shower Wound/Incision Care: Keep Operative Site/Wound Site Clean and Dry Notify Provider of: Fever, Increased Pain, Swelling and Redness, Drainage, Nausea and/or Vomiting - Discharge Plan Home Medications: Home Meds PNV95/Ferrous Fumarate/FA [ Tablet] 1 tab PO DAILY 12/07/17 [History] Referrals: Frederick Engle MD [Primary Care Provider] - (1-2 weeks) - Discharge Summary/Plan Comment DC Time >30 min.: No - General Info Date of Service: 03/13/18 Functional Status: Reports: Pain Controlled - Review of Systems General: Reports: No Symptoms HEENT: Reports: No Symptoms Pulmonary: Reports: No Symptoms Cardiovascular: Reports: No Symptoms Gastrointestinal: Reports: No Symptoms Genitourinary: Reports: No Symptoms Musculoskeletal: Reports: No Symptoms Skin: Reports: No Symptoms Neurological: Reports: No Symptoms Psychiatric: Reports: No Symptoms - Patient Data Vitals - Most Recent: Last Vital Signs Temp 37.0 C 03/13/18 03:00 Pulse 82 03/13/18 03:00 Resp 14 03/13/18 03:00 BP 118/68 03/13/18 03:00 Pulse Ox 100 03/13/18 03:00 Weight - Most Recent: 124.284 kg I&O - Last 24 hours: Intake & Output 03/12/18 03/13/18 03/13/18 22:59 06:59 14:59 Intake Total 482 Balance 482 Lab Results - Last 24 hrs: Laboratory Results - last 24 hr 03/11/18 03/12/18 03/13/18 Range/Units 14:00 11:15 05:40 WBC 7.38 (3.98-10.04) K/mm3 RBC 3.41 L (3.98-5.22) M/mm3 Hgb 8.7 L (11.2-15.7) gm/L Hct 28.1 L (34.1-44.9) % MCV 82.4 (79.4-94.8) fl MCH 25.5 L (25.6-32.2) pg MCHC 31.0 L (32.2-35.5) g/dl RDW Std Deviation 44.4 (36.4-46.3) fL Plt Count 220 (182-369) K/mm3 MPV 11.3 (9.4-12.3) fl Group B Strep (PCR) Negative (NEGATIVE) Blood Type Cancelled Gel Antibody Screen Cancelled Screen 0 ros/5 flds - neg RhIG Candidate? Yes Rhogam Indicated Cancelled Med Orders - Current: Current Medications Benzocaine/Menthol (Dermoplast Pain Relief [place]) 0 gm TOP ASDIRECTED PRN PRN Reason: Perineal Comfort Measure Docusate Sodium (Colace) 100 mg PO BID PRN PRN Reason: Constipation Emollient Ointment (Lansinoh Hpa) 0 gm TOP ASDIRECTED PRN PRN Reason: Sore Nipples Ibuprofen (Motrin) 600 mg PO Q6H PRN PRN Reason: Mild pain or fever Last Admin: 03/13/18 07:44 Dose: 600 mg Witch Mable (Tucks) 1 pad TOP ASDIRECTED PRN PRN Reason: Hemorrhoid pain Discontinued Medications Diphenhydramine HCl (Benadryl) 25 mg IVPUSH Q6H PRN PRN Reason: Pruritis Ephedrine Sulfate (Ephedrine Sulfate) 5 mg IVPUSH ASDIRECTED PRN PRN Reason: Hypotension Fentanyl (Sublimaze) 100 mcg EPIDUR Q3H PRN PRN Reason: Pain Last Admin: 03/12/18 05:25 Dose: 100 mcg Fentanyl/Bupivacaine HCl (Fentanyl/Bupivacaine/Ns 2 Mcg-0.125% 100 Ml) 100 ml EPIDUR ASDIRECTED [facility] Last Admin: 03/12/18 05:26 Dose: 100 ml Lactated Ringer's (Ringers, Lactated) 1,000 mls @ 100 mls/hr IV ASDIRECTED [facility] Last Admin: 03/12/18 06:40 Dose: 100 mls/hr Oxytocin/Lactated Ringer's (Pitocin In Lr 10 Units/1,000 Ml) 10 unit in 1,000 mls @ 12 mls/hr IV TITRATE [facility]; Protocol Last Titration: 03/12/18 06:43 Dose: 0 munits/min, 0 mls/hr Misoprostol (Cytotec) 25 mcg VAG Q4HR [facility] Last Admin: 03/11/18 13:45 Dose: 25 mcg Misoprostol (Cytotec) 25 mcg VAG Q4H SHAUN Last Admin: 03/12/18 16:10 Dose: Not Given Nalbuphine HCl (Nubain) 10 mg IVPUSH Q3H PRN PRN Reason: Pain Ondansetron HCl (Zofran) 4 mg IVPUSH ONETIME PRN PRN Reason: Nausea/Vomiting Last Admin: 03/12/18 04:52 Dose: 4 mg Sodium Chloride (Saline Flush) 10 ml FLUSH ASDIRECTED PRN PRN Reason: Keep Vein Open - Exam General: Reports: Alert, Oriented HEENT: Reports: Pupils Equal, Pupils Reactive, EOMI, Mucous Membr. Moist/[place] Neck: Reports: Supple Lungs: Reports: Clear to Auscultation, Normal Respiratory Effort Cardiovascular: Reports: Regular Rate, Regular Rhythm GI/Abdominal Exam: Normal Bowel Sounds, Soft, Non-Tender, No Organomegaly, No Distention, No Abnormal Bruit, No Mass, Pelvis Stable Back Exam: Reports: Normal Inspection, Full Range of Motion Extremities: Normal Inspection, Normal Range of Motion, Non-Tender, No Pedal Edema, Normal Capillary Refill Skin: Reports: Warm, Dry, Intact Wound/Incisions: Reports: Healing Well Neurological: Reports: No New Focal Deficit Psy/Mental Status: Reports: Alert, Normal Affect, Normal Mood
[2018-03-13 15:34] VITALS: BP 136/91
--- NOTE | 2018-03-15 04:42 | PCM.SN ---
- Free Text/Narrative Note: Stage I- patient presented with contractions and elevated blood pressures decision made for induction of labor for gestational hypertension. Pitocin and AROM augmentation progressed nicely to complete with overall reassuring heart tones. Stage II- spontaneous vaginal delivery of a viable male weight 30/1/10 grams Apgars 8/9 at 07 13 03/12/2018. Head delivered in a controlled manner over intact perineum. Positive cry body and shoulders delivered atraumatically. No lacerations. Cord clamped and cut Stage III - spontaneous vaginal delivery of intact placenta. No lacerations estimated blood loss 200
== END 2018-03-13 10:00 | disposition home or self-care (01) | DRG 775 ==
LOC: JD.OB 11:24 → JD.OBCHECK 11:24 → JD.OB 13:35 → UNDOADMOB 17:25 → JD.OB 17:25 → OBSVTOIN 03-12 07:13 → JD.OB 03-12 07:14
PROVIDERS: ADMIT Obstetrics & Gynecology; ATTEND Obstetrics & Gynecology
PROC: 10E0XZZ Delivery of Products of Conception, External Approach (ICD-10-PCS; principal; 2018-03-12)
PROC: 3E0S3GC Introduction of Other Therapeutic Substance into Epidural Space, Percutaneous Approach (ICD-10-PCS; 2018-03-12)
PROC: 3E0234Z Introduction of Serum, Toxoid and Vaccine into Muscle, Percutaneous Approach (ICD-10-PCS; 2018-03-12)
PROC: 10907ZC Drainage of Amniotic Fluid, Therapeutic from Products of Conception, Via Natural or Artificial Opening (ICD-10-PCS; 2018-03-12)
DX: O13.4 Gestational [pregnancy-induced] hypertension without significant proteinuria, complicating childbirth (principal); Z3A.37 37 weeks gestation of pregnancy; Z37.0 Single live birth; O99.214 Obesity complicating childbirth; E66.9 Obesity, unspecified; Z68.30 Body mass index [BMI] 30.0-30.9, adult; Z29.13 Encounter for prophylactic Rho(D) immune globulin; Z87.891 Personal history of nicotine dependence
CPT/HCPCS: 01967; 36415; 51702; 59025; 59409; 80306; 80307; 82565; 83615; 84450; 84460; 84520; 84550; 85025; 85027; 85461; 86850; 86900; 86901; 87491; 87591; 87653; A9270-GY; J2405; J2590; J2790; J3010; J7120

== ENCOUNTER 2018-11-14 10:36 | Emergency (ER) | payer MEDICAID, SELFPAY ==
[2018-11-14] MEDS ORDERED: Sodium Chloride 0.9% 10 ML Syringe FLUSH PRN (11:31)
[2018-11-14] MEDS ORDERED: Ondansetron 4 MG/2 ML SDV IVPUSH ONE (11:31)
[2018-11-14] MEDS ORDERED: Sodium Chloride 0.9% 1,000 ML IV SCH (11:45)
[2018-11-14] MEDS ORDERED: HYDROmorphone 1 MG/ML Syringe IVPUSH ONE (11:45)
--- NOTE | 2018-11-14 12:11 | EDM.PDOC ---
<Charley Manriquez M - Last Filed: 11/14/18 12:36> ED HPI GENERAL MEDICAL PROBLEM - General Chief Complaint: Abdominal Pain Stated Complaint: [facility] Time Seen by Provider: 11/14/18 11:13 Source of Information: Reports: Patient, RN Notes Reviewed History Limitations: Reports: No Limitations - History of Present Illness INITIAL COMMENTS - FREE TEXT/NARRATIVE: Mani is a 28 year old female who presents with abdominal pain, nausea, vomiting and diarrhea for the past 12 hours. Patient states that she possibly ate some questionable food at [employer] last night, and at about 10pm she started to feel ill. She then took a shot of patron tequila and felt worse. She states that she has had 4 episodes of emesis, no blood and 9-10 episodes of watery diarrhea, no blood. She is currently unable to keep any fluids down without emesis. She complains of generalized abdominal pain that is mostly epigastic. The pain is intermittent, and is sharp/stabbing for 2-3 minutes and then subsides. She also has piercing headache that is frontal in nature, and complains of photophobia. She endorses sweating, chills, tactile fevers, and dizziness with movement. She denies shortness of breath, or body aches. Abdominal Pain Score (Numeric/FACES): 7 - Related Data Allergies Allergy/AdvReac Type Severity Reaction Status Date / Time No Known Allergies Allergy Verified 08/31/18 15:36 Home Meds: Home Meds Acetaminophen/HYDROcodone [[place] 325-5 MG] 1 tab PO Q6H PRN #10 tablet 08/31/18 [Rx] Ondansetron [Zofran ODT] 4 mg PO Q6H PRN #7 tab.dis 11/14/18 [Rx] Past Medical History - Past Health History Medical/Surgical History: Denies Medical/Surgical History Genitourinary History: Reports: STD Other Genitourinary History: clamydia [employer]FORM[employer] History: Reports: , Therapeutic Neurological History: Reports: Headaches, Chronic Endocrine/Metabolic History: Reports: Obesity/BMI 30+ - Past Surgical History HEENT Surgical History: Reports: Oral Surgery Social & Family History - Family History Family Medical History: Noncontributory - Tobacco Use Smoking Status *Q: Never Smoker - Caffeine Use Caffeine Use: Reports: None - Recreational Drug Use Recreational Drug Use: No - Living Situation & Occupation Living situation: Reports: Single, with Significant Other (Boyfriend), with Family (2 kids) 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 ED EXAM, GI/ABD - Physical Exam Exam: See Below Exam Limited By: No Limitations General Appearance: Alert, WD/WN, Mild Distress, Obese Eyes: Bilateral: Normal Appearance, EOMI Ears: Normal External Exam, Hearing Grossly Normal Nose: Normal Inspection, Normal Mucosa, No Blood Throat/Mouth: Normal Inspection, Normal Lips, Normal Teeth, Normal Oropharynx, Other (mucous membranes moist) Head: Atraumatic, Normocephalic Respiratory/Chest: No Respiratory Distress, Lungs Clear, Normal Breath Sounds. No: Crackles, Rales, Rhonchi Cardiovascular: Regular Rate, Rhythm, No Murmur, No Rub GI/Abdominal Exam: Normal Bowel Sounds, Soft, No Mass, Tender (throughout, especially epigastric) Neurological: Alert, Oriented, Normal Cognition Skin Exam: Warm, Dry, Intact Course - Vital Signs Last Recorded V/S: Last Vital Signs Temp 100.7 F H 11/14/18 14:25 Pulse 106 H 11/14/18 14:25 Resp 16 11/14/18 14:25 BP 99/65 11/14/18 14:25 Pulse Ox 100 11/14/18 14:25 - Orders/Labs/Meds Orders: Active Orders 24 hr Category Date Time Status Peripheral IV Care [RC] . DIRECTED Care 11/14/18 11:32 Active Peripheral IV Insertion Adult [OM.PC] Stat Oth 11/14/18 11:31 Ordered Labs: Laboratory Tests 11/14/18 11/14/18 11/14/18 Range/Units 10:50 10:50 11:00 WBC 11.22 H (3.98-10.04) K/mm3 RBC 5.10 (3.98-5.22) M/mm3 Hgb 10.5 L (11.2-15.7) gm/L Hct 35.6 (34.1-44.9) % MCV 69.8 L (79.4-94.8) fl MCH 20.6 L (25.6-32.2) pg MCHC 29.5 L (32.2-35.5) g/dl RDW Std Deviation 47.5 H (36.4-46.3) fL Plt Count 312 (182-369) K/mm3 MPV 10.6 (9.4-12.3) fl Neut % (Auto) 84.1 H (34.0-71.1) % Lymph % (Auto) 7.6 L (19.3-51.7) % [place] % (Auto) 6.7 (4.7-12.5) % Eos % (Auto) 1.3 (0.7-5.8) Baso % (Auto) 0.1 (0.1-1.2) % Neut # (Auto) 9.44 H (1.56-6.13) K/mm3 Lymph # (Auto) 0.85 L (1.18-3.74) K/mm3 [place] # (Auto) 0.75 H (0.24-0.36) K/mm3 Eos # (Auto) 0.15 (0.04-0.36) K/mm3 Baso # (Auto) 0.01 (0.01-0.08) K/mm3 Manual Slide Review Abnormal smear Sodium (136-145) mEq/L Potassium (3.5-5.1) mEq/L Chloride (98-107) mEq/L Carbon Dioxide (21-32) mEq/L Anion Gap (5-15) BUN (7-18) mg/dL Creatinine (0.55-1.02) mg/dL Est Cr Clr Drug Dosing Estimated GFR (MDRD) (>60) mL/min BUN/Creatinine Ratio (14-18) Glucose (74-106) mg/dL Calcium (8.5-10.1) mg/dL Total Bilirubin (0.2-1.0) mg/dL AST (15-37) U/L ALT (14-59) U/L Alkaline Phosphatase (46-116) U/L Total Protein (6.4-8.2) g/dl Albumin (3.4-5.0) g/dl Globulin gm/dL Albumin/Globulin Ratio (1-2) Urine Color Yellow (Yellow) Urine Appearance Clear (Clear) Urine pH 8.5 H (5.0-8.0) Ur Specific [place] 1.020 (1.005-1.030) Urine Protein 1+ H (Negative) Urine Glucose (UA) Negative (Negative) Urine Ketones Negative (Negative) Urine Occult Blood Negative (Negative) Urine Nitrite Negative (Negative) Urine Bilirubin Negative (Negative) Urine Urobilinogen 0.2 (0.2-1.0) Ur Leukocyte Esterase Negative (Negative) Urine RBC 0-5 (0-5) /hpf Urine WBC 0-5 (0-5) /hpf Ur Epithelial Cells 20-30 H (0-5) /hpf Urine Bacteria Few (FEW) /hpf Urine Mucus Not seen (FEW) /hpf C.difficile [id number] Presumptive negative C. difficile Tox (PCR) Negative 11/14/18 Range/Units 11:00 WBC (3.98-10.04) K/mm3 RBC (3.98-5.22) M/mm3 Hgb (11.2-15.7) gm/L Hct (34.1-44.9) % MCV (79.4-94.8) fl MCH (25.6-32.2) pg MCHC (32.2-35.5) g/dl RDW Std Deviation (36.4-46.3) fL Plt Count (182-369) K/mm3 MPV (9.4-12.3) fl Neut % (Auto) (34.0-71.1) % Lymph % (Auto) (19.3-51.7) % [place] % (Auto) (4.7-12.5) % Eos % (Auto) (0.7-5.8) Baso % (Auto) (0.1-1.2) % Neut # (Auto) (1.56-6.13) K/mm3 Lymph # (Auto) (1.18-3.74) K/mm3 [place] # (Auto) (0.24-0.36) K/mm3 Eos # (Auto) (0.04-0.36) K/mm3 Baso # (Auto) (0.01-0.08) K/mm3 Manual Slide Review Sodium 138 (136-145) mEq/L Potassium 3.9 (3.5-5.1) mEq/L Chloride 103 (98-107) mEq/L Carbon Dioxide 26 (21-32) mEq/L Anion Gap 12.9 (5-15) BUN 9 (7-18) mg/dL Creatinine 0.6 (0.55-1.02) mg/dL Est Cr Clr Drug Dosing TNP Estimated GFR (MDRD) > 60 (>60) mL/min BUN/Creatinine Ratio 15.0 (14-18) Glucose 104 (74-106) mg/dL Calcium 8.9 (8.5-10.1) mg/dL Total Bilirubin 0.3 (0.2-1.0) mg/dL AST 14 L (15-37) U/L ALT 20 (14-59) U/L Alkaline Phosphatase 78 (46-116) U/L Total Protein 8.1 (6.4-8.2) g/dl Albumin 3.7 (3.4-5.0) g/dl Globulin 4.4 gm/dL Albumin/Globulin Ratio 0.8 L (1-2) Urine Color (Yellow) Urine Appearance (Clear) Urine pH (5.0-8.0) Ur Specific [place] (1.005-1.030) Urine Protein (Negative) Urine Glucose (UA) (Negative) Urine Ketones (Negative) Urine Occult Blood (Negative) Urine Nitrite (Negative) Urine Bilirubin (Negative) Urine Urobilinogen (0.2-1.0) Ur Leukocyte Esterase (Negative) Urine RBC (0-5) /hpf Urine WBC (0-5) /hpf Ur Epithelial Cells (0-5) /hpf Urine Bacteria (FEW) /hpf Urine Mucus (FEW) /hpf C.difficile [id number] C. difficile Tox (PCR) Meds: Medications Discontinued Medications Generic Name Dose Route Start Last Admin Trade Name Bridgerq PRN Reason Stop Dose Admin Hydromorphone HCl 1 mg 11/14/18 11:45 Dilaudid IVPUSH 11/14/18 11:46 ONETIME ONE Sodium Chloride 1,000 mls @ 999 mls/hr 11/14/18 11:45 11/14/18 11:40 Normal Saline IV 999 mls/hr ONETIME SHAUN Administration Metoclopramide HCl 5 mg 11/14/18 13:37 11/14/18 13:45 Reglan IVPUSH 11/14/18 13:38 5 mg ONETIME ONE Administration Ondansetron HCl 4 mg 11/14/18 11:31 11/14/18 11:38 Zofran IVPUSH 11/14/18 11:32 4 mg ONETIME ONE Administration Sodium Chloride 10 ml 11/14/18 11:31 11/14/18 11:38 Saline Flush FLUSH 10 ml ASDIRECTED PRN Administration Keep Vein Open Departure - Departure Disposition: Home, Self-Care 01 Clinical Impression: Abdominal pain Qualifiers: Abdominal location: upper abdomen, unspecified Qualified Code(s): R10.10 - Upper abdominal pain, unspecified Diarrhea Qualifiers: Diarrhea type: unspecified type Qualified Code(s): R19.7 - Diarrhea, unspecified Vomiting Qualifiers: Vomiting type: unspecified Vomiting Intractability: unspecified - Discharge Information Prescriptions: Ondansetron [Zofran ODT] 4 mg PO Q6H PRN #7 tab.dis PRN Reason: Nausea/Vomiting Instructions: Diarrhea, Adult, Abdominal Pain, Adult Referrals: PCP,None [Primary Care Provider] - Forms: ED Department Discharge Additional Instructions: Clear liquids only until tomorrow, than careful bland diet as tolerated. Zofran if needed for further nausea or vomiting. Follow up clinic if not getting back to normal within 1 to 2 days as expected. - My Orders Last 24 Hours: My Active Orders 11/14/18 11:31 Peripheral IV Insertion Adult [OM.PC] Stat 11/14/18 11:32 Peripheral IV Care [RC] . DIRECTED - Assessment/Plan Last 24 Hours: My Active Orders 11/14/18 11:31 Peripheral IV Insertion Adult [OM.PC] Stat 11/14/18 11:32 Peripheral IV Care [RC] . DIRECTED <Ranjan Dawson - Last Filed: 11/14/18 16:45> Course - Re-Assessments/Exams Free Text/Narrative Re-Assessment/Exam: 11/14/18 16:34 initial hx and exam was done by Daniella Manriquez, [employer] student. I have also interviewed and evaluated patient. I agree with hx and exam as documented. Labs have all come back relatively normal. Have treated with 1 liter NS, zofran 4 mg IV. No further vomiting or diarrhea while here in the ED. Discharge instr. as documented. Departure - Departure Time of Disposition: 14:04 Condition: Fair
[2018-11-14] MEDS ORDERED: Metoclopramide 10 MG/2 ML SDV IVPUSH ONE (13:37)
[2018-11-14 14:42] VITALS: BP 99/65
== END 2018-11-14 14:25 | disposition home or self-care (01) ==
LOC: JD.ED 10:36
DX: R10.10 Upper abdominal pain, unspecified (principal); R19.7 Diarrhea, unspecified; R11.2 Nausea with vomiting, unspecified
CPT/HCPCS: 36415; 80053; 81001; 85025; 87493; 89055; 96361; 96374; 96375; 99285; J2405; J2765; J7040; 99284

== ENCOUNTER 2019-04-16 09:03 | Emergency (ER) | payer MEDICAID, OTHER ==
--- NOTE | 2019-04-16 09:18 | EDM.PDOC ---
ED HPI GENERAL MEDICAL PROBLEM - General Chief Complaint: Bite:Animal, Insect Stated Complaint: INSECT BITE ON THIGH Time Seen by Provider: 04/16/19 09:53 - History of Present Illness INITIAL COMMENTS - FREE TEXT/NARRATIVE: 28-year-old female presents emergency room with right leg swelling itching and pain. Patient thinks she got bit by a mosquito she had multiple mosquito bites yesterday but the one on the right lower thigh is getting quite red and swollen. Yesterday patient was sitting for prolonged periods of time she drove nonstop from [place] to here. Patient is not on any exogenous steroids hormones or control. She denies being . She did not see or feel a bug or insect bite or sting in that location. She denies fevers or chills no chest pain chest pressure breathing difficulties or shortness of breath. - Related Data Allergies Allergy/AdvReac Type Severity Reaction Status Date / Time No Known Allergies Allergy Verified 04/16/19 09:11 Past Medical History - Past Health History Medical/Surgical History: Denies Medical/Surgical History Genitourinary History: Reports: STD Other Genitourinary History: clamydia [employer] History: Reports: , Therapeutic Neurological History: Reports: Headaches, Chronic Endocrine/Metabolic History: Reports: Obesity/BMI 30+ - Past Surgical History HEENT Surgical History: Reports: Oral Surgery Social & Family History - Family History Family Medical History: Noncontributory - Tobacco Use Smoking Status *Q: Never Smoker - Caffeine Use Caffeine Use: Reports: None - Recreational Drug Use Recreational Drug Use: No - Living Situation & Occupation Living situation: Reports: Single, with Significant Other (Boyfriend), with Family (2 kids) 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 Developed veins below this area seemed to be torturous denies calf tenderness with palpation) Neurological: Reports: No Symptoms Hematologic/Lymphatic: Reports: No Symptoms Immunologic: Reports: No Symptoms ED EXAM, ANIMAL BITE - Physical Exam Exam: See Below Exam Limited By: No Limitations General Appearance: Alert, No Apparent Distress Head: Atraumatic, Normocephalic Neck: Normal Inspection, Supple, Non-Tender, Full Range of Motion Respiratory/Chest: No Respiratory Distress, Lungs Clear, Normal Breath Sounds Cardiovascular: Regular Rate, Rhythm, No Edema, No Murmur Back Exam: Normal Inspection. No: CVA Tenderness (L), CVA Tenderness (R) Extremities: Other (Marked swelling distal posterior medial aspect of the right thigh this does extend around to include the veins of concern. She has significant tenderness in this area low this she has torturous veins not a lot of calf tenderness and no appreciable warmth or swelling in the calf but over the area of redness she does have swelling and warmth) Course - Vital Signs Last Recorded V/S: Last Vital Signs Temp 36.3 C 04/16/19 09:08 Pulse 98 04/16/19 09:08 Resp 16 04/16/19 09:08 BP 132/104 H 04/16/19 09:08 Pulse Ox 100 04/16/19 09:08 - Orders/Labs/Meds Orders: Active Orders 24 hr Category Date Time Status VL Duplex Lwr Ext Veins Ltd Rt [US] Stat Exams 04/16/19 10:49 Taken Labs: Laboratory Tests 04/16/19 04/16/19 04/16/19 Range/Units 10:13 10:13 10:15 WBC 6.41 (3.98-10.04) K/mm3 RBC 5.29 H (3.98-5.22) M/mm3 Hgb 11.4 (11.2-15.7) gm/L Hct 37.7 (34.1-44.9) % MCV 71.3 L (79.4-94.8) fl MCH 21.6 L (25.6-32.2) pg MCHC 30.2 L (32.2-35.5) g/dl RDW Std Deviation 48.9 H (36.4-46.3) fL Plt Count 330 (182-369) K/mm3 MPV 10.4 (9.4-12.3) fl Neutrophils % (Manual) 46 (40-60) % Band Neutrophils % 0 (0-10) % Lymphocytes % (Manual) 32 (20-40) % Atypical Lymphs % 0 % Monocytes % (Manual) 13 H (2-10) % Eosinophils % (Manual) 7 H (0.7-5.8) % Basophils % (Manual) 2 H (0.1-1.2) Platelet Estimate Adequate Plt Morphology Comment See note Hypochromasia 1+ slight Anisocytosis 1+ slight RBC Morph Comment Abnormal PT 10.4 (9.5-12.1) SECONDS INR 0.95 APTT 35 H (24-31) SECONDS D-Dimer, Quantitative 0.86 H (0.19-0.50) mg/L HCG, Qual Negative (NEGATIVE) Meds: Medications Discontinued Medications Generic Name Dose Route Start Last Admin Trade Name Fremarcial PRN Reason Stop Dose Admin Diphenhydramine HCl 50 mg 04/16/19 10:02 04/16/19 10:07 Benadryl PO 04/16/19 10:03 50 mg ONETIME ONE Administration Famotidine 40 mg 04/16/19 10:02 04/16/19 10:07 Pepcid PO 04/16/19 10:03 40 mg ONETIME ONE Administration - Re-Assessments/Exams Free Text/Narrative Re-Assessment/Exam: 04/16/19 10:59 I checked a d-dimer came back positive on the patient indications for the d- dimer was leg swelling history of prolonged sitting yesterday normal pulse and respiratory rate she as of yet has not had any improvement with the Benadryl or famotidine. 04/16/19 13:08 Patient doing much better she only has some itching when she flexes her knee all the way. The patient's d-dimer was elevated and she had a venous study of that lower extremity preliminary results are negative still waiting on the final read. The patient is insistent on leaving at this time. Departure - Departure Time of Disposition: 13:09 Disposition: Home, Self-Care 01 Clinical Impression: Insect bite or sting, Thigh pain - Discharge Information Referrals: PCP,None [Primary Care Provider] - Forms: ED Department Discharge Additional Instructions: Return to emergency room if any questions problems worsening symptoms. Take famotidine 20 mg twice daily for the next 7-10 days. Use Benadryl 25-50 mg every 6 hours as needed. Follow-up with your regular provider in 2 days for recheck - My Orders Last 24 Hours: My Active Orders 04/16/19 10:49 VL Duplex Lwr Ext Veins Ltd Rt [US] Stat - Assessment/Plan Last 24 Hours: My Active Orders 04/16/19 10:49 VL Duplex Lwr Ext Veins Ltd Rt [US] Stat
[2019-04-16] MEDS ORDERED: Famotidine 20 MG Tab PO ONE (10:02)
[2019-04-16] MEDS ORDERED: diphenhydrAMINE 50 MG Cap PO ONE (10:02)
[2019-04-16 10:30] VITALS: BP 132/104
--- NOTE | 2019-04-16 13:38 | US ---
Right lower extremity deep venous ultrasound: Duplex and color flow imaging was obtained of the right common femoral, proximal greater saphenous, superficial femoral, popliteal, posterior tibial and peroneal veins. Left common femoral vein was also evaluated. Findings: Normal phasic flow, augmentation and compression are seen. Impression: 1. No evidence of deep venous thrombosis within the right lower extremity or left common femoral vein. Diagnostic code #1
== END 2019-04-16 13:21 | disposition home or self-care (01) ==
LOC: JD.ED 09:03
DX: M79.651 Pain in right thigh (principal)
CPT/HCPCS: 36415; 84703; 85007; 85027; 85379; 85610; 85730; 93971; 99283; A9270

== ENCOUNTER 2023-09-10 21:44 | Emergency (ER) | payer SELFPAY ==
[2023-09-10 21:55] VITALS: BP 110/72; PULSE 95
[2023-09-10 22:37] LABS: APPEARANCE,URINE CLOUDY (Clear); BILIRUBIN,URINE NEGATIVE (Negative); COLOR,URINE YELLOW (Yellow); GLUCOSE,URINE NEGATIVE (Negative); KETONES,URINE TRACE (Negative); LEUKOCYTE ESTERASE,URINE 2+ (Negative); NITRITE,URINE NEGATIVE (Negative); OCCULT BLOOD,URINE 2+ (Negative); PROTEIN,URINE 2+ (Negative); UROBILINOGEN,URINE 0.2 (0.2-1.0)
[2023-09-10 22:49] LABS: BACTERIA,URINE FEW /hpf (FEW); MUCUS,URINE MODERATE /hpf (FEW); WBC,URINE >100 /hpf (0-5)
[2023-09-10] MEDS ORDERED: Cephalexin 500 MG Cap PO ONE (23:24)
== END 2023-09-10 23:33 | disposition home or self-care (01) ==
LOC: JD.ED 21:44
DX: N39.0 Urinary tract infection, site not specified (principal); E66.9 Obesity, unspecified
CPT/HCPCS: 81001; 87086; 99283; A9270